=== PATIENT | female | born 1970 | race Caucasian/White ===

== ENCOUNTER 2016-03-10 11:27 | Emergency (ER) | payer OTHER ==
[~2016-03-10] VITALS: Ht 165.1 cm; Wt 59.6 kg
[~2016-03-10 11:27] MED LIST: BUPROPION XL300 MG PO; FLEXERIL5 MG PO; IBUPROFEN800 MG PO; NAPROSYN500 MG PO
[2016-03-10 12:30] LABS: MCH 32.3 PG (29.0-34.0); MCHC 35.5 G/DL (30.0-36.0); MCV 90.9 FL (83-99); MEAN PLAT.VOLUME 8.7 uM^3 (9.5-12.4); PLATELET COUNT 249 K/uL (156-360); RBC DIS.WIDTH-CV 13.8 % (11.8-14.6); RBC DIS.WIDTH-SD 44.8 % (39-53); RED BLOOD COUNT 4.62 M/uL (3.80-5.20); WHITE BLOOD COUNT 11.9 K/uL (4.1-10.2)
[2016-03-10 12:40] LABS: CHLORIDE 90 mEq/L (99-109); POTASSIUM 3.8 mEq/L (3.7-5.4); SODIUM 136 mEq/L (136-147)
[2016-03-10 12:42] LABS: GLUCOSE 92 mg/dL (70-99)
[2016-03-10 12:44] LABS: ANION GAP 28 MEQ/L (2-14)
[2016-03-10 12:46] LABS: GFR ESTIMATE (CALCULATED) > 59 mL/min/
[2016-03-10 12:47] LABS: UREA NITROGEN (BUN) 17 mg/dL (9-23)
[2016-03-10 12:50] LABS: TROP-I INTERPRETATION NEGATIVE; TROPONIN-I < 0.01 ng/mL (0.0-0.30)
[2016-03-10 14:09] LABS: EOSINOPHIL (%) 0.2 % (0-5); IMMATURE GRANULOCYTE (%) 0.2 % (0.0-0.7); IMMATURE GRANULOCYTE COUNT 0.2 K/uL; MONOCYTE (%) 10.5 % (3-12); MONOCYTE COUNT 1.2 K/uL (0-0.8); NEUTROPHIL (%) 71.7 % (45-76); NEUTROPHIL COUNT 8.2 K/uL (1.8-6.4); TOTAL BILIRUBIN 1.2 mg/dL (0.0-1.0)
[2016-03-10 14:10] LABS: ALKALINE PHOSPHATASE 87 IU/L (3-129)
[2016-03-10 14:12] LABS: DIRECT BILIRUBIN 0.4 mg/dL (0.0-0.3)
[2016-03-10] MEDS ORDERED: PRILOSEC20 MG PO (16:35)
[2016-03-10] MEDS ORDERED: CARAFATE1 GM PO (16:35)
[2016-03-10 16:53] VITALS: BP 122/74
== END 2016-03-10 16:55 | disposition home or self-care (01) ==
LOC: EME 11:27
DX: R00.2 Palpitations (principal); R10.13 Epigastric pain
CPT/HCPCS: 71020; 71275; 76705; 80048; 80076; 84484; 85025; 85027; 87502; 93005; 99281; 99284; J1100; J1885; J7030

== ENCOUNTER 2016-03-13 18:52 | Emergency (ER) | payer OTHER ==
[~2016-03-13] VITALS: Ht 167.6 cm; Wt 55.4 kg
[~2016-03-13 18:52] MED LIST changes: +CARAFATE1 GM PO; +PRILOSEC20 MG PO
[2016-03-13 19:33] LABS: ADD MIUA? YES; BILIRUBIN NEGATIVE; BLOOD NEGATIVE; COLOR YELLOW ((YELLOW)); GLUCOSE (STRIP) NEGATIVE; KETONES NEGATIVE; LEUKOCYTES MODERATE; NITRITE NEGATIVE; PH, URINE 6.5 (5-8); PROTEIN (STRIP) 30
[2016-03-13 19:54] LABS: POTASSIUM 3.1 mEq/L (3.7-5.4); SODIUM 142 mEq/L (136-147)
[2016-03-13 19:55] LABS: GLUCOSE 121 mg/dL (70-99)
[2016-03-13 19:57] LABS: ANION GAP 17 MEQ/L (2-14)
[2016-03-13 19:59] LABS: GFR ESTIMATE (CALCULATED) > 59 mL/min/
[2016-03-13 20:00] LABS: UREA NITROGEN (BUN) 9 mg/dL (9-23)
[2016-03-13 20:01] LABS: CHLORIDE 100 mEq/L (99-109)
[2016-03-13 20:04] LABS: HEMATOCRIT 41.7 % (36.0-46.0); MCH 32.2 PG (29.0-34.0); MCHC 35.5 G/DL (30.0-36.0); MCV 90.8 FL (83-99); MEAN PLAT.VOLUME 9.5 uM^3 (9.5-12.4); PLATELET COUNT 190 K/uL (156-360); RBC DIS.WIDTH-CV 13.9 % (11.8-14.6); RBC DIS.WIDTH-SD 45.3 % (39-53); RED BLOOD COUNT 4.59 M/uL (3.80-5.20)
[2016-03-13 20:05] LABS: WHITE BLOOD COUNT 7.2 K/uL (4.1-10.2)
[2016-03-13 20:20] LABS: BACTERIA 2+ /HPF; CASTS NONE SEEN /LPF; CRYSTALS NONE SEEN; EPITHELIAL CELLS 3+ /HPF; MUCUS 4+ /LPF; RED BLOOD CELLS 0-5 /HPF (0-5); UCUL ADDED? YES
[2016-03-13 21:25] LABS: ALKALINE PHOSPHATASE 86 IU/L (3-129)
[2016-03-13 21:27] LABS: TOTAL BILIRUBIN 0.5 mg/dL (0.0-1.0)
[2016-03-13 21:28] LABS: DIRECT BILIRUBIN 0.2 mg/dL (0.0-0.3)
[2016-03-13 21:29] LABS: LIPASE 44 U/L (1.0-51.0)
[2016-03-13] MEDS ORDERED: PROMETHAZINE HC25 M1 PO (22:30)
[2016-03-13 23:01] VITALS: BP 131/87
== END 2016-03-13 23:03 | disposition home or self-care (01) ==
LOC: EXP 18:52 → EME 18:52 → EXP 23:03
DX: R11.2 Nausea with vomiting, unspecified (principal); R74.8 Abnormal levels of other serum enzymes
CPT/HCPCS: 80048; 80076; 81003; 83690; 85027; 87086; 99281; 99284; J2550

== ENCOUNTER 2016-04-08 08:12 | Inpatient (IN) | payer OTHER ==
[~2016-04-08] VITALS: Ht 167.6 cm; Wt 53.6 kg
[~2016-04-08 08:12] MED LIST changes: +PROMETHAZINE HC25 M1 PO
[2016-04-08 08:57] LABS: EOSINOPHIL (%) 0.4 % (0-5); EOSINOPHIL COUNT 0.1 K/uL (0-0.3); IMMATURE GRANULOCYTE (%) 0.2 % (0.0-0.7); IMMATURE GRANULOCYTE COUNT 0.2 K/uL; LYMPHOCYTE COUNT 5.2 K/uL (1.0-2.8); MCH 33.6 PG (29.0-34.0); MCHC 36.4 G/DL (30.0-36.0); MCV 92.2 FL (83-99); MEAN PLAT.VOLUME 9.5 uM^3 (9.5-12.4); MONOCYTE (%) 8.7 % (3-12); MONOCYTE COUNT 1.1 K/uL (0-0.8); NEUTROPHIL (%) 50.8 % (45-76); NEUTROPHIL COUNT 6.6 K/uL (1.8-6.4); PLATELET COUNT 234 K/uL (156-360); RBC DIS.WIDTH-CV 14.8 % (11.8-14.6); RBC DIS.WIDTH-SD 48.1 % (39-53); RED BLOOD COUNT 4.88 M/uL (3.80-5.20)
[2016-04-08 09:03] LABS: CHLORIDE 92 mEq/L (99-109); POTASSIUM 4.4 mEq/L (3.7-5.4); SODIUM 141 mEq/L (136-147)
[2016-04-08 09:05] LABS: GLUCOSE 107 mg/dL (70-99)
[2016-04-08 09:07] LABS: ANION GAP 32 MEQ/L (2-14)
[2016-04-08 09:08] LABS: SERUM ETHYL ALCOHOL < 10 mg/dL
[2016-04-08 09:09] LABS: GFR ESTIMATE (CALCULATED) 57 mL/min/
[2016-04-08 09:10] LABS: UREA NITROGEN (BUN) 20 mg/dL (9-23)
[2016-04-08 09:19] LABS: QUANTITATIVE HCG < 4.0 MIU/ML
[2016-04-08] MEDS ORDERED: CARBAMAZEPINE100 M2 PO (12:49)
[2016-04-08] MEDS ORDERED: WELLBUTRIN SR200 MG PO (12:49)
[2016-04-08] MEDS ORDERED: LATUDA20 MG PO (12:50)
[2016-04-08] MEDS ORDERED: DAILY VALUE1 EACH PO (12:51)
[2016-04-08 13:44] LABS: LIPASE 52 U/L (1.0-51.0)
[2016-04-08 14:25] VITALS: BP 115/75
[2016-04-08 19:10] VITALS: BP 113/75
[2016-04-08 22:04] VITALS: BP 116/71
[2016-04-09 03:36] VITALS: BP 106/70
[2016-04-09 07:51] LABS: ALKALINE PHOSPHATASE 60 IU/L (3-129); ANION GAP 14 MEQ/L (2-14); CHLORIDE 97 MEQ/L (99-109); GFR ESTIMATE (CALCULATED) > 59 mL/min/; GLUCOSE 80 mg/dL (70-99); POTASSIUM 2.8 MEQ/L (3.7-5.4); SAMPLE HEMOLYSIS CHECK 0; SAMPLE ICTERIC CHECK 0; SAMPLE LIPEMIA CHECK 0; SODIUM 140 MEQ/L (136-147); TOTAL BILIRUBIN 1.2 MG/DL (0.0-1.0); UREA NITROGEN (BUN) 16 mg/dL (9-23)
[2016-04-09 07:58] VITALS: BP 106/81
[2016-04-09 11:27] VITALS: BP 123/73
[2016-04-09 16:12] VITALS: BP 120/82
[2016-04-09 19:30] VITALS: BP 106/73
[2016-04-09 23:15] VITALS: BP 110/76
[2016-04-10 03:30] VITALS: BP 104/65
[2016-04-10 09:36] VITALS: BP 106/65
[2016-04-10] MEDS ORDERED: FOLIC ACID1 MG PO (13:23)
[2016-04-10] MEDS ORDERED: Thiamine,Vitamin B1 PO (13:23)
[2016-04-10] MEDS ORDERED: NALTREXONE HCL50 MG PO (13:23)
[2016-04-10 13:56] VITALS: BP 111/77
[2016-04-10] MEDS ORDERED: LIBRIUM10 MG PO (15:07)
== END 2016-04-10 17:16 | disposition home or self-care (01) | DRG 897 ==
LOC: EME → EDBD 08:12 → EDOF 12:47 → 5EAST 12:47
PROVIDERS: Emergency Medicine; Internal Medicine
DX: F10.239 Alcohol dependence with withdrawal, unspecified (principal); E86.0 Dehydration; F31.9 Bipolar disorder, unspecified; G40.909 Epilepsy, unspecified, not intractable, without status epilepticus; F17.210 Nicotine dependence, cigarettes, uncomplicated
CPT/HCPCS: 80048; 80053; 81003; 83690; 83735; 84702; 85025; 93005; 99281; 99284; G0480; J1650; J2060; J2270; J2405; J3411; S0028

== ENCOUNTER 2016-04-12 16:11 | Emergency (ER) | payer OTHER ==
[~2016-04-12] VITALS: Ht 167.6 cm; Wt 57.4 kg
[~2016-04-12 16:11] MED LIST changes: +CARBAMAZEPINE100 M2 PO; +DAILY VALUE1 EACH PO; +FOLIC ACID1 MG PO; +LATUDA20 MG PO; +LIBRIUM10 MG PO; +NALTREXONE HCL50 MG PO; +Thiamine,Vitamin B1 PO; +WELLBUTRIN SR200 MG PO
[2016-04-12 16:56] LABS: EOSINOPHIL (%) 1.2 % (0-5); EOSINOPHIL COUNT 0.1 K/uL (0-0.3); HEMATOCRIT 35.7 % (36.0-46.0); LYMPHOCYTE COUNT 2.1 K/uL (1.0-2.8); MCH 33.3 PG (29.0-34.0); MCHC 34.7 G/DL (30.0-36.0); MONOCYTE (%) 9.7 % (3-12); MONOCYTE COUNT 0.5 K/uL (0-0.8); NEUTROPHIL COUNT 2.2 K/uL (1.8-6.4); RBC DIS.WIDTH-CV 14.3 % (11.8-14.6); RBC DIS.WIDTH-SD 47.4 % (39-53)
[2016-04-12 16:57] LABS: RED BLOOD COUNT 3.72 M/uL (3.80-5.20); WHITE BLOOD COUNT 4.8 K/uL (4.1-10.2)
[2016-04-12 16:59] LABS: POTASSIUM 3.1 mEq/L (3.7-5.4); SODIUM 144 mEq/L (136-147)
[2016-04-12 17:00] LABS: MAGNESIUM 1.8 mg/dL (1.3-2.7)
[2016-04-12 17:01] LABS: GLUCOSE 93 mg/dL (70-99)
[2016-04-12 17:03] LABS: ANION GAP 13 MEQ/L (2-14)
[2016-04-12 17:05] LABS: GFR ESTIMATE (CALCULATED) > 59 mL/min/
[2016-04-12 17:06] LABS: UREA NITROGEN (BUN) 6 mg/dL (9-23)
[2016-04-12 17:07] LABS: CHLORIDE 106 mEq/L (99-109)
[2016-04-12 17:31] LABS: ADD MIUA? YES; BILIRUBIN NEGATIVE; BLOOD NEGATIVE; COLOR STRAW ((YELLOW)); GLUCOSE (STRIP) NEGATIVE; KETONES NEGATIVE; LEUKOCYTES NEGATIVE; NITRITE NEGATIVE; PROTEIN (STRIP) NEGATIVE; SPECIFIC GRAVITY 1.003 (1.000-1.030); UROBILINOGEN 0.2 MG/DL (0.2-1.0)
[2016-04-12 17:33] LABS: BACTERIA RARE /HPF; EPITHELIAL CELLS RARE /HPF; MUCUS NONE SEEN /LPF; RED BLOOD CELLS 0-5 /HPF (0-5); UNCLASSIFIED CRYSTALS 1+ /HPF; WHITE BLOOD CELLS 0-5 /HPF (0-5)
[2016-04-12 18:17] VITALS: BP 106/75
[2016-04-12 18:18] LABS: MEAN PLAT.VOLUME 9.7 uM^3 (9.5-12.4); PLAT.SUFFICIENCY ADEQUATE; PLATELET COUNT 137 K/uL (156-360); USER ID NJV
== END 2016-04-12 18:57 | disposition home or self-care (01) ==
LOC: EME → EDBD 16:11 → EME 16:11
PROVIDERS: Emergency Medicine
DX: R41.3 Other amnesia (principal); F10.21 Alcohol dependence, in remission; E87.6 Hypokalemia; M62.81 Muscle weakness (generalized); Z87.891 Personal history of nicotine dependence
CPT/HCPCS: 80048; 81003; 83735; 84100; 85025; 99281; 99285

== ENCOUNTER 2016-06-05 14:53 | Emergency (ER) | payer OTHER ==
[~2016-06-05] VITALS: Ht 167.6 cm; Wt 57.0 kg
[2016-06-05 16:41] LABS: HEMATOCRIT 45.1 % (36.0-46.0); MCH 33.3 PG (29.0-34.0); MCHC 35.3 G/DL (30.0-36.0); MCV 94.5 FL (83-99); MEAN PLAT.VOLUME 8.3 uM^3 (9.5-12.4); PLATELET COUNT 439 K/uL (156-360); RBC DIS.WIDTH-CV 13.3 % (11.8-14.6); RBC DIS.WIDTH-SD 46.3 % (39-53); RED BLOOD COUNT 4.77 M/uL (3.80-5.20); WHITE BLOOD COUNT 8.3 K/uL (4.1-10.2)
[2016-06-05 16:51] LABS: CHLORIDE 104 mEq/L (99-109); POTASSIUM 4.2 mEq/L (3.7-5.4); SODIUM 145 mEq/L (136-147)
[2016-06-05 16:53] LABS: GLUCOSE 87 mg/dL (70-99)
[2016-06-05 16:54] LABS: ANION GAP 23 MEQ/L (2-14)
[2016-06-05 16:56] LABS: GFR ESTIMATE (CALCULATED) > 59 mL/min/; SERUM ETHYL ALCOHOL 377 mg/dL
[2016-06-05 16:57] LABS: UREA NITROGEN (BUN) 9 mg/dL (9-23)
[2016-06-05 17:04] LABS: QUANTITATIVE HCG < 4.0 MIU/ML
[2016-06-06] MEDS ORDERED: ZOFRAN4 MG PO (03:56)
[2016-06-06] MEDS ORDERED: LIBRIUM25 MG PO (03:56)
[2016-06-06 04:29] VITALS: BP 110/87
== END 2016-06-06 04:36 | disposition home or self-care (01) ==
LOC: EME 14:53
PROVIDERS: Emergency Medicine
DX: F10.229 Alcohol dependence with intoxication, unspecified (principal); F10.239 Alcohol dependence with withdrawal, unspecified; F31.9 Bipolar disorder, unspecified; G43.909 Migraine, unspecified, not intractable, without status migrainosus; F41.9 Anxiety disorder, unspecified; Z87.891 Personal history of nicotine dependence
CPT/HCPCS: 80048; 84702; 85027; 90839; 99281; 99285; G0480; J2405; J7030

== ENCOUNTER 2016-06-18 18:28 | Inpatient (IN) | payer OTHER ==
[~2016-06-18] VITALS: Ht 167.6 cm; Wt 52.8 kg
[~2016-06-18 18:28] MED LIST changes: +LIBRIUM25 MG PO; +ZOFRAN4 MG PO
[2016-06-18 19:32] LABS: HEMATOCRIT 49.2 % (36.0-46.0); MCH 33.3 PG (29.0-34.0); MCHC 34.1 G/DL (30.0-36.0); MCV 97.6 FL (83-99); RBC DIS.WIDTH-SD 46.3 % (39-53); RED BLOOD COUNT 5.04 M/uL (3.80-5.20)
[2016-06-18 19:34] LABS: CHLORIDE 94 mEq/L (99-109); POTASSIUM 4.3 mEq/L (3.7-5.4); SODIUM 136 mEq/L (136-147)
[2016-06-18 19:37] LABS: GLUCOSE 204 mg/dL (70-99)
[2016-06-18 19:38] LABS: ANION GAP 34 MEQ/L (2-14)
[2016-06-18 19:39] LABS: TOTAL BILIRUBIN 0.9 mg/dL (0.0-1.0)
[2016-06-18 19:40] LABS: ALKALINE PHOSPHATASE 89 IU/L (3-129); GFR ESTIMATE (CALCULATED) 27 mL/min/
[2016-06-18 19:42] LABS: UREA NITROGEN (BUN) 16 mg/dL (9-23)
[2016-06-18 19:44] LABS: LIPASE 286 U/L (1.0-51.0); WHITE BLOOD COUNT 13.7 K/uL (4.1-10.2)
[2016-06-18 19:51] LABS: QUANTITATIVE HCG < 4.0 MIU/ML
[2016-06-18 19:55] LABS: SERUM ETHYL ALCOHOL < 10 mg/dL
[2016-06-18 20:08] LABS: HEMATOLOGY COMMENT 1 SN; MEAN PLAT.VOLUME 9.7 uM^3 (9.5-12.4); PLAT.SUFFICIENCY ADEQUATE; PLATELET COUNT 168 K/uL (156-360)
[2016-06-18 20:30] LABS: CARBON DIOXIDE (BICARBONATE) 10.3 MEQ/L (20-31)
[2016-06-18] MEDS ORDERED: FOLIC ACID1 MG PO (20:43)
[2016-06-18] MEDS ORDERED: IBUPROFEN800 MG PO (20:43)
[2016-06-18] MEDS ORDERED: B-1100 MG PO (20:43)
[2016-06-18 21:04] LABS: MAGNESIUM 2.3 mg/dL (1.3-2.7)
[2016-06-19] VITALS (7 sets, daily range): BP systolic 90–117; BP diastolic 62–79
[2016-06-19 07:32] LABS: GFR ESTIMATE (CALCULATED) > 59 mL/min/
[2016-06-19 09:21] LABS: EOSINOPHIL (%) 0.3 % (0-5); HEMATOCRIT 35.2 % (36.0-46.0); IMMATURE GRANULOCYTE (%) 0.3 % (0.0-0.7); INSTRUMENT ABS NEUTROPHIL CT 5.6 K/uL; LYMPHOCYTE COUNT 2.4 K/uL (1.0-2.8); MCH 33.2 PG (29.0-34.0); MCHC 35.8 G/DL (30.0-36.0); MCV 92.6 FL (83-99); MEAN PLAT.VOLUME 10.2 uM^3 (9.5-12.4); MONOCYTE (%) 14.5 % (3-12); MONOCYTE COUNT 1.4 K/uL (0-0.8); NEUTROPHIL (%) 59.2 % (45-76); NEUTROPHIL COUNT 5.6 K/uL (1.8-6.4); PLATELET COUNT 127 K/uL (156-360); RBC DIS.WIDTH-CV 12.2 % (11.8-14.6); RBC DIS.WIDTH-SD 41.8 % (39-53); WHITE BLOOD COUNT 9.5 K/uL (4.1-10.2)
[2016-06-19 09:25] LABS: ALKALINE PHOSPHATASE 64 IU/L (3-129); ANION GAP 15 MEQ/L (2-14); CHLORIDE 98 MEQ/L (99-109); GLUCOSE 165 mg/dL (70-99); POTASSIUM 3.5 MEQ/L (3.7-5.4); SODIUM 132 MEQ/L (136-147); TOTAL BILIRUBIN 0.9 MG/DL (0.0-1.0); UREA NITROGEN (BUN) 16 mg/dL (9-23)
[2016-06-19 09:29] LABS: BASE EXCESS -0.7 mEq/L (-3 to +3); BICARBONATE 23.4 mEq/L (22-26); CARBOXY HGB 2.5 % (0-5); METHEMOGLOBIN 2.1 % (0-1.5); PCO2 36 mm Hg (35-45); PO2 75 mm Hg (80-100); pH 7.42 (7.35-7.45)
[2016-06-19 09:30] LABS: COMMENTS - BLOOD GASES A+C+; DEVICE RA; SITE RR; TOTAL RESP RATE 16 resp/min
[2016-06-19 10:45] LABS: AMPHETAMINES QUANT VALUE 0 NG/ML; BARBITUATES QUANT VALUE 0 NG/ML; BENZODIAZEPINES, URINE SCREEN POSITIVE (200 ng/mL); OPIATES QUANTITATIVE VALUE 0 NG/ML; PHENCYCLIDINE QUANT VALUE 0 NG/ML
[2016-06-19 16:19] LABS: ANION GAP 8 MEQ/L (2-14); CHLORIDE 103 MEQ/L (99-109); GFR ESTIMATE (CALCULATED) > 59 mL/min/; GLUCOSE 122 mg/dL (70-99); POTASSIUM 3.7 MEQ/L (3.7-5.4); SAMPLE HEMOLYSIS CHECK 0; SAMPLE ICTERIC CHECK 0; SAMPLE LIPEMIA CHECK 0; SODIUM 133 MEQ/L (136-147); UREA NITROGEN (BUN) 13 mg/dL (9-23)
[2016-06-20 03:42] VITALS: BP 110/67
[2016-06-20 07:25] VITALS: BP 105/63
[2016-06-20 07:30] LABS: EOSINOPHIL (%) 1.8 % (0-5); EOSINOPHIL COUNT 0.1 K/uL (0-0.3); HEMATOCRIT 27.3 % (36.0-46.0); IMMATURE GRANULOCYTE (%) 0.4 % (0.0-0.7); INSTRUMENT ABS NEUTROPHIL CT 2.6 K/uL; LYMPHOCYTE COUNT 2.2 K/uL (1.0-2.8); MCH 35.1 PG (29.0-34.0); MCV 94.8 FL (83-99); MEAN PLAT.VOLUME 10.4 uM^3 (9.5-12.4); MONOCYTE (%) 9.2 % (3-12); MONOCYTE COUNT 0.5 K/uL (0-0.8); NEUTROPHIL (%) 47.7 % (45-76); NEUTROPHIL COUNT 2.6 K/uL (1.8-6.4); PLATELET COUNT 97 K/uL (156-360); RBC DIS.WIDTH-CV 12.4 % (11.8-14.6); RBC DIS.WIDTH-SD 43.1 % (39-53)
[2016-06-20 07:33] LABS: ALKALINE PHOSPHATASE 53 IU/L (3-129); ANION GAP 12 MEQ/L (2-14); CHLORIDE 103 MEQ/L (99-109); GFR ESTIMATE (CALCULATED) > 59 mL/min/; LIPASE 111 U/L (1.0-51.0); POTASSIUM 3.3 MEQ/L (3.7-5.4); SAMPLE HEMOLYSIS CHECK 0; SAMPLE ICTERIC CHECK 0; SAMPLE LIPEMIA CHECK 0; SODIUM 133 MEQ/L (136-147); UREA NITROGEN (BUN) 9 mg/dL (9-23)
[2016-06-20 07:34] LABS: GLUCOSE 68 mg/dL (70-99)
[2016-06-20 07:40] LABS: RED BLOOD COUNT 2.88 M/uL (3.80-5.20); WHITE BLOOD COUNT 5.4 K/uL (4.1-10.2)
[2016-06-20 11:30] VITALS: BP 138/84
[2016-06-20 15:58] VITALS: BP 118/77
[2016-06-20 20:01] VITALS: BP 119/62
[2016-06-20 23:31] VITALS: BP 137/81
[2016-06-21 03:52] VITALS: BP 132/90
[2016-06-21 05:12] LABS: EOSINOPHIL COUNT 0.1 K/uL (0-0.3); HEMATOCRIT 28.8 % (36.0-46.0); IMMATURE GRANULOCYTE (%) 0.2 % (0.0-0.7); INSTRUMENT ABS NEUTROPHIL CT 2.9 K/uL; LYMPHOCYTE COUNT 1.9 K/uL (1.0-2.8); MCH 33.8 PG (29.0-34.0); MCHC 36.1 G/DL (30.0-36.0); MCV 93.5 FL (83-99); MEAN PLAT.VOLUME 10.9 uM^3 (9.5-12.4); MONOCYTE (%) 9.8 % (3-12); MONOCYTE COUNT 0.5 K/uL (0-0.8); NEUTROPHIL COUNT 2.9 K/uL (1.8-6.4); PLATELET COUNT 90 K/uL (156-360); RBC DIS.WIDTH-SD 40.9 % (39-53); RED BLOOD COUNT 3.08 M/uL (3.80-5.20); WHITE BLOOD COUNT 5.4 K/uL (4.1-10.2)
[2016-06-21 05:50] LABS: ANION GAP 8 MEQ/L (2-14); CHLORIDE 101 MEQ/L (99-109); GFR ESTIMATE (CALCULATED) > 59 mL/min/; GLUCOSE 117 mg/dL (70-99); MAGNESIUM 1.6 mg/dl (1.3-2.7); POTASSIUM 3.5 MEQ/L (3.7-5.4); SAMPLE HEMOLYSIS CHECK 0; SAMPLE ICTERIC CHECK 0; SAMPLE LIPEMIA CHECK 0; SODIUM 134 MEQ/L (136-147); UREA NITROGEN (BUN) 5 mg/dL (9-23)
[2016-06-21 08:02] VITALS: BP 141/80
[2016-06-21 15:24] VITALS: BP 118/68
== END 2016-06-21 21:22 | DRG 439 ==
LOC: EME 18:28 → 5SOUTH 23:07 → EDOF 23:07 → 5SOUTH 06-19 00:49
PROVIDERS: Emergency Medicine; Hospitalist; Internal Medicine; Internal Medicine Nephrology
PROC: HZ2ZZZZ Detoxification Services for Substance Abuse Treatment (ICD-10-PCS; principal; 2016-06-18)
DX: K85.20 Alcohol induced acute pancreatitis without necrosis or infection (principal); F10.230 Alcohol dependence with withdrawal, uncomplicated; E87.2 Acidosis; N17.9 Acute kidney failure, unspecified; R04.2 Hemoptysis; E87.1 Hypo-osmolality and hyponatremia; R45.851 Suicidal ideations; Z68.1 Body mass index [BMI] 19.9 or less, adult; Y90.0 Blood alcohol level of less than 20 mg/100 ml; F12.10 Cannabis abuse, uncomplicated; K70.10 Alcoholic hepatitis without ascites; G43.909 Migraine, unspecified, not intractable, without status migrainosus; F41.9 Anxiety disorder, unspecified; G40.909 Epilepsy, unspecified, not intractable, without status epilepticus; G43.A1 Cyclical vomiting, in migraine, intractable; F17.210 Nicotine dependence, cigarettes, uncomplicated; R73.9 Hyperglycemia, unspecified; R00.0 Tachycardia, unspecified; E83.39 Other disorders of phosphorus metabolism; K76.0 Fatty (change of) liver, not elsewhere classified; E87.6 Hypokalemia; E86.0 Dehydration; E88.89 Other specified metabolic disorders; R63.6 Underweight; T73.0XXA Starvation, initial encounter; F10.220 Alcohol dependence with intoxication, uncomplicated; K29.20 Alcoholic gastritis without bleeding; Z56.0 Unemployment, unspecified
CPT/HCPCS: 36600; 71250; 74176; 80048; 80048 91; 80053; 80306 90; 81003; 82010; 82565; 82803; 83605; 83690; 83735; 84100; 84702; 85025; 85027; 87040; 99281; 99285; C9113; G0480; J0696; J1650; J2060; J2405; J3370; J3411; J3475; J3480; J7030; J7040; J7042; J7050; J7070

== ENCOUNTER 2016-06-21 20:24 | Inpatient (IN) | payer OTHER ==
[~2016-06-21 20:24] MED LIST changes: +B-1100 MG PO
== END 2016-06-21 22:15 | disposition home or self-care (01) | DRG 881 ==
LOC: 1WEST 20:24
DX: F32.9 Major depressive disorder, single episode, unspecified (principal); E87.2 Acidosis; R45.851 Suicidal ideations; F41.9 Anxiety disorder, unspecified; E87.6 Hypokalemia; F10.20 Alcohol dependence, uncomplicated; Z56.0 Unemployment, unspecified

== ENCOUNTER 2017-04-06 00:54 | Emergency (ER) | payer OTHER ==
[~2017-04-06] VITALS: Ht 167.6 cm; Wt 50.3 kg
[2017-04-06] MEDS ORDERED: TYLENOL WITH C1 EACH PO (02:46)
[2017-04-06] MEDS ORDERED: ULTRAM50 MG PO (02:54)
[2017-04-06 03:01] VITALS: BP 126/84
== END 2017-04-06 03:03 | disposition home or self-care (01) ==
LOC: EME 00:54
PROC: 2W3KX1Z Immobilization of Left Finger using Splint (ICD-10-PCS; principal; 2017-04-06)
DX: S62.647A Nondisplaced fracture of proximal phalanx of left little finger, initial encounter for closed fracture (principal); T76.11XA Adult physical abuse, suspected, initial encounter; W23.0XXA Caught, crushed, jammed, or pinched between moving objects, initial encounter; F17.200 Nicotine dependence, unspecified, uncomplicated; Z88.5 Allergy status to narcotic agent
CPT/HCPCS: 73130; 99281; 99284

== ENCOUNTER 2017-05-23 12:33 | Emergency (ER) | payer OTHER ==
[~2017-05-23] VITALS: Ht 167.6 cm; Wt 48.2 kg
[~2017-05-23 12:33] MED LIST changes: +TYLENOL WITH C1 EACH PO; +ULTRAM50 MG PO
[2017-05-23 13:53] LABS: HEMATOCRIT 38.6 % (36.0-46.0); HEMOGLOBIN 13.6 G/DL (11.9-15.5); MCH 32.9 PG (29.0-34.0); MCHC 35.2 G/DL (30.0-36.0); MCV 93.2 FL (83-99); PLATELET COUNT 210 K/uL (156-360); RBC DIS.WIDTH-CV 14.6 % (11.8-14.6); RBC DIS.WIDTH-SD 50.6 % (39-53); RED BLOOD COUNT 4.14 M/uL (3.80-5.20); WHITE BLOOD COUNT 8.5 K/uL (4.1-10.2)
[2017-05-23 14:04] LABS: CHLORIDE 104 mEq/L (99-109); POTASSIUM 3.8 mEq/L (3.7-5.4); SODIUM 143 mEq/L (136-147)
[2017-05-23 14:09] LABS: SERUM ETHYL ALCOHOL 233 mg/dL
[2017-05-23 14:10] LABS: CREATININE 0.7 mg/dL (0.6-1.3); GFR ESTIMATE (CALCULATED) > 59 mL/min/
[2017-05-23 14:11] LABS: UREA NITROGEN (BUN) 13 mg/dL (9-23)
[2017-05-23 14:12] LABS: GLUCOSE 51 mg/dL (70-99)
[2017-05-23 14:18] LABS: QUANTITATIVE HCG < 4.0 MIU/ML
[2017-05-23 14:48] LABS: TROP-I INTERPRETATION NEGATIVE; TROPONIN-I < 0.01 ng/mL (0.0-0.30)
[2017-05-23 19:39] VITALS: BP 96/67
== END 2017-05-23 19:43 | disposition home or self-care (01) ==
LOC: EME 12:33
PROVIDERS: Emergency Medicine
DX: F41.9 Anxiety disorder, unspecified (principal); F10.129 Alcohol abuse with intoxication, unspecified; E16.2 Hypoglycemia, unspecified; R00.2 Palpitations; F32.9 Major depressive disorder, single episode, unspecified; F31.32 Bipolar disorder, current episode depressed, moderate; F17.200 Nicotine dependence, unspecified, uncomplicated; Y90.7 Blood alcohol level of 200-239 mg/100 ml; Z90.49 Acquired absence of other specified parts of digestive tract; Z88.5 Allergy status to narcotic agent; Z88.8 Allergy status to other drugs, medicaments and biological substances
CPT/HCPCS: 80048; 82948; 84484; 84702; 85027; 90839; 93005; 99281; 99285; G0480; J2405; J7030

== ENCOUNTER 2017-09-14 10:32 | Inpatient (IN) | payer OTHER ==
[~2017-09-14] VITALS: Ht 160 cm; Wt 48.2 kg
[~2017-09-14 10:32] MED LIST changes: -LATUDA20 MG PO; +LATUDA40 MG PO
[2017-09-14 11:37] LABS: HEMATOCRIT 35.3 % (36.0-46.0); MCH 35.4 PG (29.0-34.0); MCHC 36.8 G/DL (30.0-36.0); MCV 96.2 FL (83-99); NRBC (%) 0.4 /100 WBC (0-0); PLATELET COUNT 93 K/uL (156-360); RBC DIS.WIDTH-CV 15.3 % (11.8-14.6); RBC DIS.WIDTH-SD 53.9 % (39-53); RED BLOOD COUNT 3.67 M/uL (3.80-5.20); WHITE BLOOD COUNT 11.4 K/uL (4.1-10.2)
[2017-09-14 12:17] LABS: TROP-I INTERPRETATION NEGATIVE; TROPONIN-I < 0.01 ng/mL (0.0-0.30)
[2017-09-14 12:18] LABS: QUANTITATIVE HCG < 4.0 MIU/ML
[2017-09-14 13:22] LABS: CHLORIDE 88 MEQ/L (99-109); CREATININE 0.7 MG/DL (0.6-1.3); GFR ESTIMATE (CALCULATED) > 59 mL/min/; GLUCOSE 123 mg/dL (70-99); POTASSIUM 3.9 MEQ/L (3.7-5.4); SERUM ETHYL ALCOHOL 47 mg/dL; SODIUM 137 MEQ/L (136-147); UREA NITROGEN (BUN) 17 mg/dL (9-23)
[2017-09-14 13:32] LABS: APPEARANCE CLEAR ((CLEAR)); BILIRUBIN NEGATIVE; BLOOD NEGATIVE; COLOR YELLOW ((YELLOW)); GLUCOSE (STRIP) NEGATIVE; KETONES 80; LEUKOCYTES NEGATIVE; NITRITE NEGATIVE; PROTEIN (STRIP) 100; SPECIFIC GRAVITY 1.023 (1.000-1.030); UROBILINOGEN 0.2 MG/DL (0.2-1.0)
[2017-09-14 13:41] LABS: BACTERIA NONE SEEN /HPF; EPITHELIAL CELLS RARE /HPF; HYALINE CASTS 30-40 /LPF; MUCUS TRACE /LPF; RED BLOOD CELLS 0-5 /HPF (0-5); UCUL ADDED? NO; WHITE BLOOD CELLS 0-5 /HPF (0-5)
[2017-09-14] MEDS ORDERED: ESOMEPRAZOLE MA20 MG PO (14:13)
[2017-09-14] MEDS ORDERED: EFFEXOR XR37.5 MG PO (14:13)
[2017-09-14 15:15] LABS: CREATINE KINASE 98 IU/L (1-294); MAGNESIUM 1.9 mg/dl (1.3-2.7)
[2017-09-14 15:55] VITALS: BP 108/58
[2017-09-14 21:00] VITALS: BP 109/58
[2017-09-14 22:41] LABS: CHLORIDE 98 mEq/L (99-109); POTASSIUM 3.3 mEq/L (3.7-5.4); SODIUM 135 mEq/L (136-147)
[2017-09-14 22:43] LABS: GLUCOSE 108 mg/dL (70-99)
[2017-09-14 22:46] LABS: CREATININE 0.7 mg/dL (0.6-1.3); GFR ESTIMATE (CALCULATED) > 59 mL/min/
[2017-09-14 22:47] LABS: UREA NITROGEN (BUN) 16 mg/dL (9-23)
[2017-09-15 00:45] VITALS: BP 106/67
[2017-09-15 04:30] VITALS: BP 107/62
[2017-09-15 05:57] LABS: CREATININE 0.5 MG/DL (0.6-1.3); GFR ESTIMATE (CALCULATED) > 59 mL/min/; HEMATOCRIT 30.9 % (36.0-46.0); MCH 34.2 PG (29.0-34.0); MCHC 35.3 G/DL (30.0-36.0); MCV 96.9 FL (83-99); POTASSIUM 3.2 MEQ/L (3.7-5.4); RBC DIS.WIDTH-CV 15.9 % (11.8-14.6); RED BLOOD COUNT 3.19 M/uL (3.80-5.20); SODIUM 137 MEQ/L (136-147); UREA NITROGEN (BUN) 13 mg/dL (9-23); WHITE BLOOD COUNT 7.6 K/uL (4.1-10.2)
[2017-09-15 06:01] LABS: HEMOGLOBIN 10.9 G/DL (11.9-15.5)
[2017-09-15 06:11] LABS: CHLORIDE 100 MEQ/L (99-109); GLUCOSE 71 mg/dL (70-99)
[2017-09-15 06:27] LABS: PLAT.SUFFICIENCY DECREASED
[2017-09-15 06:29] LABS: PLATELET COUNT 62 K/uL (156-360)
[2017-09-15 07:15] VITALS: BP 103/55
[2017-09-15 11:50] VITALS: BP 130/66
[2017-09-15] MEDS ORDERED: VENLAFAXINE H37.5 M3 PO (21:05)
== END 2017-09-15 13:15 | disposition left against medical advice (07) | DRG 894 ==
LOC: EME 10:32 → 4EAST 14:14 → EDOF 14:14 → ENRESERV 14:29 → 4EAST 15:29
PROVIDERS: Emergency Medicine; Internal Medicine
DX: F10.239 Alcohol dependence with withdrawal, unspecified (principal); R56.9 Unspecified convulsions; F17.210 Nicotine dependence, cigarettes, uncomplicated; E87.2 Acidosis; B37.0 Candidal stomatitis; D72.829 Elevated white blood cell count, unspecified; M25.541 Pain in joints of right hand; F31.9 Bipolar disorder, unspecified; Z53.21 Procedure and treatment not carried out due to patient leaving prior to being seen by health care provider
CPT/HCPCS: 71045; 73502; 80048; 80048 91; 81003; 82550; 82550 91; 83735; 84484; 84702; 85027; 93005; 99281; 99285; G0480; J1644; J2060; J2405; J3411; J7030

== ENCOUNTER 2017-09-15 17:43 | Inpatient (IN) | payer OTHER ==
[~2017-09-15] VITALS: Ht 167.6 cm; Wt 53.0 kg
[~2017-09-15 17:43] MED LIST changes: +EFFEXOR XR37.5 MG PO; +ESOMEPRAZOLE MA20 MG PO
[2017-09-15 19:17] LABS: BASOPHIL (%) 0.3 % (0-1); EOSINOPHIL (%) 0.4 % (0-5); HEMATOCRIT 28.5 % (36.0-46.0); HEMOGLOBIN 10.4 G/DL (11.9-15.5); IMMATURE GRANULOCYTE (%) 0.5 % (0.0-0.7); LYMPHOCYTE (%) 28.6 % (15-42); LYMPHOCYTE COUNT 2.3 K/uL (1.0-2.8); MCH 35.3 PG (29.0-34.0); MCHC 36.5 G/DL (30.0-36.0); MCV 96.6 FL (83-99); MONOCYTE (%) 8.7 % (3-12); MONOCYTE COUNT 0.7 K/uL (0-0.8); NEUTROPHIL (%) 61.5 % (45-76); NEUTROPHIL COUNT 4.8 K/uL (1.8-6.4); NRBC (%) 0.3 /100 WBC (0-0); PLATELET COUNT 64 K/uL (156-360); RBC DIS.WIDTH-CV 15.8 % (11.8-14.6); RBC DIS.WIDTH-SD 54.5 % (39-53); RED BLOOD COUNT 2.95 M/uL (3.80-5.20); WHITE BLOOD COUNT 7.9 K/uL (4.1-10.2)
[2017-09-15 19:34] LABS: CHLORIDE 103 mEq/L (99-109); POTASSIUM 3.4 mEq/L (3.7-5.4); SODIUM 137 mEq/L (136-147)
[2017-09-15 19:36] LABS: TOTAL PROTEIN 6.4 g/dL (6.4-8.3)
[2017-09-15 19:37] LABS: GLUCOSE 104 mg/dL (70-99)
[2017-09-15 19:38] LABS: TOTAL BILIRUBIN 0.9 mg/dL (0.0-1.0)
[2017-09-15 19:39] LABS: SERUM ETHYL ALCOHOL 92 mg/dL
[2017-09-15 19:40] LABS: ALKALINE PHOSPHATASE 79 IU/L (3-129); CREATININE 0.7 mg/dL (0.6-1.3); GFR ESTIMATE (CALCULATED) > 59 mL/min/
[2017-09-15 19:41] LABS: AST (GOT) 104 IU/L (2-34); UREA NITROGEN (BUN) 12 mg/dL (9-23)
[2017-09-15 19:43] LABS: ALT (GPT) 20 IU/L (3-49)
[2017-09-15 19:52] LABS: CREATINE KINASE 1040 IU/L (1-294)
[2017-09-15] MEDS ORDERED: VENLAFAXINE H37.5 M3 PO (21:05)
[2017-09-15 21:35] LABS: APPEARANCE CLEAR ((CLEAR)); BILIRUBIN NEGATIVE; BLOOD NEGATIVE; COLOR YELLOW ((YELLOW)); GLUCOSE (STRIP) NEGATIVE; KETONES NEGATIVE; LEUKOCYTES LARGE; NITRITE NEGATIVE; PROTEIN (STRIP) NEGATIVE; SPECIFIC GRAVITY 1.013 (1.000-1.030)
[2017-09-15 21:50] LABS: AMPHETAMINE NEGATIVE (500 ng/mL); BARBITURATES NEGATIVE (200 ng/mL); BENZODIAZEPINES PRESUMPTIVE POSITIVE (150 ng/mL); BUPRENORPHINE NEGATIVE (10 ng/mL); COCAINE NEGATIVE (150 ng/mL); METHADONE NEGATIVE (200 ng/mL); METHAMPHETAMINE NEGATIVE (500 ng/mL); OPIATES (MORPHINE) NEGATIVE (100 ng/mL); OXYCODONE NEGATIVE (100 ng/mL); PHENCYCLIDINE NEGATIVE (25 ng/mL); PROPOXYPHENE NEGATIVE (300 ng/mL); THC CANNABINOIDS NEGATIVE (50 ng/mL); TRICYCLIC ANTIDEPRESSANTS NEGATIVE (300 ng/mL)
[2017-09-15 21:53] LABS: BACTERIA RARE /HPF; EPITHELIAL CELLS RARE /HPF; MUCUS TRACE /LPF; UCUL ADDED? YES
[2017-09-15 22:11] LABS: MAGNESIUM 1.7 mg/dL (1.3-2.7)
[2017-09-15 22:22] LABS: BENZODIAZEPINES, URINE SCREEN POSITIVE (200 ng/mL)
[2017-09-15 23:32] VITALS: BP 122/91
[2017-09-15 23:39] VITALS: BP 122/91
[2017-09-16] VITALS (22 sets, daily range): BP systolic 102–135; BP diastolic 68–99
[2017-09-16 05:37] LABS: HEMATOCRIT 25.1 % (36.0-46.0); MCH 35.2 PG (29.0-34.0); MCHC 35.9 G/DL (30.0-36.0); NRBC (%) 0.3 /100 WBC (0-0); PLATELET COUNT 56 K/uL (156-360); RBC DIS.WIDTH-SD 57.5 % (39-53); RED BLOOD COUNT 2.56 M/uL (3.80-5.20); WHITE BLOOD COUNT 7.3 K/uL (4.1-10.2)
[2017-09-16 06:15] LABS: ALBUMIN 3.3 G/DL (3.2-4.8); ALKALINE PHOSPHATASE 59 IU/L (3-129); ALT (GPT) 15 IU/L (3-49); AST (GOT) 75 IU/L (2-34); CHLORIDE 104 MEQ/L (99-109); CREATININE 0.4 MG/DL (0.6-1.3); GFR ESTIMATE (CALCULATED) > 59 mL/min/; GLUCOSE 112 mg/dL (70-99); POTASSIUM 3.4 MEQ/L (3.7-5.4); SODIUM 138 MEQ/L (136-147); TOTAL PROTEIN 5.3 G/DL (6.4-8.3); UREA NITROGEN (BUN) 7 mg/dL (9-23)
[2017-09-17 00:38] VITALS: BP 109/78
[2017-09-17 03:41] VITALS: BP 108/77
[2017-09-17 07:35] VITALS: BP 111/76
[2017-09-17 09:14] LABS: CHLORIDE 103 MEQ/L (99-109); CREATININE 0.5 MG/DL (0.6-1.3); GFR ESTIMATE (CALCULATED) > 59 mL/min/; GLUCOSE 115 mg/dL (70-99); POTASSIUM 3.5 MEQ/L (3.7-5.4); SODIUM 137 MEQ/L (136-147); UREA NITROGEN (BUN) 4 mg/dL (9-23)
[2017-09-17 11:40] VITALS: BP 109/74
[2017-09-17] MEDS ORDERED: LIDODERM 5% P1 PATCH TD (14:36)
[2017-09-17] MEDS ORDERED: COLACE100 MG PO (14:36)
[2017-09-17] MEDS ORDERED: ROXICODONE5 MG PO (14:36)
[2017-09-17] MEDS ORDERED: NICODERM CQ1 EAC2 TD (14:36)
[2017-09-17] MEDS ORDERED: NIFEREX-150,FE150 MG PO (14:36)
[2017-09-17 14:53] VITALS: BP 112/59
== END 2017-09-17 16:27 | disposition home or self-care (01) | DRG 83 ==
LOC: EME 17:43 → EDOF 21:39 → 4WEST 21:39 → ENRESERV 21:48 → 4WEST 23:25 → ENRESERV 09-16 13:09 → ENRESERVTM 09-16 13:09 → CANRESERV 09-16 13:09 → 4WEST 09-16 13:41 → ENRESERV 09-16 15:03 → CANRESERV 09-16 15:03 → ENRESERV 09-16 15:15 → 3EAST 09-16 16:00
PROVIDERS: Emergency Medicine; Physician Assistant; Surgery
DX: S02.19XA Other fracture of base of skull, initial encounter for closed fracture (principal); F10.230 Alcohol dependence with withdrawal, uncomplicated; S06.5X9A Traumatic subdural hemorrhage with loss of consciousness of unspecified duration, initial encounter; D69.6 Thrombocytopenia, unspecified; S06.6X9A Traumatic subarachnoid hemorrhage with loss of consciousness of unspecified duration, initial encounter; S42.032A Displaced fracture of lateral end of left clavicle, initial encounter for closed fracture; W10.9XXA Fall (on) (from) unspecified stairs and steps, initial encounter; F10.229 Alcohol dependence with intoxication, unspecified; Y90.4 Blood alcohol level of 80-99 mg/100 ml; K21.9 Gastro-esophageal reflux disease without esophagitis; F31.9 Bipolar disorder, unspecified; D64.9 Anemia, unspecified; F17.210 Nicotine dependence, cigarettes, uncomplicated
CPT/HCPCS: 70450; 71045; 72125; 73030; 80048; 80053; 81003; 82550; 83735; 84999; 85025; 85027; 87086; 87641; 99281; 99284; G0480; J1170; J2060; J7040